=== PATIENT | female | born 1995 ===

== ENCOUNTER → 2019-12-20 | Outpatient (CLI) | payer OTHER | END | disposition home or self-care (01) | LOC: LAB 11:07 | PROVIDERS: ATTEND Internal Medicine Pulmonary Disease | DX: Z20.828 Contact with and (suspected) exposure to other viral communicable diseases (principal); J02.9 Acute pharyngitis, unspecified; J98.8 Other specified respiratory disorders | CPT/HCPCS: U0003-CS ==

== ENCOUNTER 2020-01-19 12:59 | Emergency (ER) | payer OTHER ==
[~2020-01-19] VITALS: Ht 172.7 cm; Wt 90.0 kg
[2020-01-19 13:40] VITALS: BP 130/68
--- NOTE | 2020-01-19 14:57 | PHYS DOC ---
Past Medical History Past Medical History: No Pertinent History Past Surgical History: No Surgical History Smoking Status: Never Smoker Alcohol Use: Occasionally General Adult EDM: Chief Complaint: HAND PROBLEM HPI: HPI: Patient is a 24 year old female who presents to the emergency department with complaints of right hand pain after her hand was slammed into a door while working today. Patient states she is not able to move her index finger after the incident. She denies any numbness, tingling, or decreased sensation in her right hand. She reports that she is right-handed. She currently rates her pain a 7 out of 10 on the pain scale, the pain does not radiate, it increases with movement and palpation. She denies any alleviating factors. Patient denies taking any Tylenol or ibuprofen prior to arrival. Review of Systems: Review of Systems: Constitutional: Denies fever or chills. [] Musculoskeletal: See HPI Integument: Reports bruising to right hand Neurologic: Denies headache, focal weakness or sensory changes. [] Psychiatric: Denies depression or anxiety. [] Heart Score: Risk Factors: Risk Factors: DM, Current or recent (<one month) smoker, HTN, HLP, family hi story of CAD, obesity. Risk Scores: Score 0 - 3: 2.5% MACE over next 6 weeks - Discharge Home Score 4 - 6: 20.3% MACE over next 6 weeks - Admit for Clinical Observation Score 7 - 10: 72.7% MACE over next 6 weeks - Early Invasive Strategies Allergies: Allergies: Allergies Coded Allergies Type Severity Reaction Last Updated Verified No Known Drug Allergies 01/19/20 No Physical Exam: PE: Constitutional: Well developed, well nourished, no acute distress, non-toxic appearance. [] HENT: Normocephalic, atraumatic, bilateral external ears normal, nose normal. [] Eyes: PERRLA, EOMI, conjunctiva normal, no discharge. [] Neck: Normal range of motion, no stridor. [] Cardiovascular:Heart rate regular rhythm Lungs & Thorax: Respirations even and unlabored, no retractions, no respiratory distress Abdomen: soft, no tenderness Skin: Warm, dry, no erythema, no rash; hematoma noted to the dorsal aspect of the right hand proximal to the first and second digits, no bleeding, no laceration or abrasion [] Extremities: Right hand: Tenderness to palpation proximal to the first and second digits, full extension and flexion of the right hand digits, no crepitus, no obvious deformity, 1+ edema, sensation intact, no cyanosis, ROM intact Neurologic: Alert and oriented X 3, no focal deficits noted. [] Psychologic: Affect normal, judgement normal, mood normal. [] Current Patient Data: Vital Signs: Vital Signs Date Time Temp Pulse Resp B/P (MAP) Pulse Ox O2 Delivery O2 Flow Rate FiO2 01/19/20 13:40 98.5 65 16 130/68 (88) 96 Room Air 98.5 EKG: EKG: [] Radiology/Procedures: Radiology/Procedures: PROCEDURE: HAND RIGHT 3V HAND RIGHT 3V History: Reason: R hand pain, R index finger pain after shut in door / Spl. Instructions: / History: Technique: 3 views right hand. Comparison: None. Findings: Normal alignment. No fracture. Soft tissues unremarkable. Impression: 1. No acute osseous abnormality. [] Course & Med Decision Making: Course & Med Decision Making Pertinent Labs and Imaging studies reviewed. (See chart for details) [] Dragon Disclaimer: Dragon Disclaimer: This electronic medical record was generated, in whole or in part, using a voice recognition dictation system. Departure Departure Impression: Primary Impression: Contusion of right hand, initial encounter Disposition: 01 HOME, SELF-CARE Condition: STABLE Referrals: JACIEL CLEMENTS APRN (PCP) FELIX ROGERS MD Patient Instructions: Hand Contusion, [id number] Additional Instructions: Your x-ray was unremarkable. You may take Tylenol or ibuprofen as needed for pain. Recommend application of ice, elevation, and rest of affected extremity. Wear the John wrap as needed for comfort. Follow-up with your primary care doctor or Dr. Rogers if symptoms persist.. Return to the ER if your symptoms worsen. Justicifation of Admission Dx: Justifications for Admission: Justification of Admission Dx: N/A Splinting Splinting : [facility] Pre[facility]Made Type: john wrap Pre-Proc Neuro Vasc Exam: normal Post-Proc Neuro Vasc Exam: normal, unchanged from pre-exam ERIKA DAHL APRN Jan 19, 2020 14:57
[2020-01-19] MEDS ORDERED: IBUPROFEN 200 MG TABLET. PO ONE (15:00)
--- NOTE | 2020-01-19 15:04 | RAD ---
HAND RIGHT 3V History: Reason: R hand pain, R index finger pain after shut in door / Spl. Instructions: / History: Technique: 3 views right hand. Comparison: None. Findings: Normal alignment. No fracture. Soft tissues unremarkable. Impression: 1. No acute osseous abnormality. Electronically signed by: Emanuel Maher DO (01/19/2020 3:01 PM) [id number]
== END 2020-01-19 15:24 | disposition home or self-care (01) ==
LOC: ER 12:59
DX: S60.221A Contusion of right hand, initial encounter (principal); W23.0XXA Caught, crushed, jammed, or pinched between moving objects, initial encounter; Y93.89 Activity, other specified; Y92.89 Other specified places as the place of occurrence of the external cause; Y99.8 Other external cause status
CPT/HCPCS: 73130; 99283